=== PATIENT | female | born 1955 | race African-American/Black ===

== ENCOUNTER 2021-08-09 16:16 | Emergency (ER) | payer MEDICARE, OTHER ==
[~2021-08-09] VITALS: Ht 172.7 cm; Wt 79.0 kg
[2021-08-09 17:30] LABS: BASOPHILS % 0.5 % (0.0-2.0); EOSINOPHILS % 0.2 % (0.0-5.0); HEMATOCRIT. 39.9 % (36.0-48.0); HEMOGLOBIN. 12.7 g/dL (12.0-16.0); LYMPHOCYTES % 8.9 % (20.0-50.0); MEAN CORPUSCULAR HEMOGLOBIN 28.5 pg (28.0-32.0); MEAN CORPUSCULAR VOLUME 89.1 fL (81.0-99.0); MEAN PLATELET VOLUME 7.3 fl (7.4-10.4); MONOCYTES % 4.1 % (2.0-8.0); NEUTROPHILS % 86.3 % (40.0-76.0); PLATELET 171 x1000/uL (130-400); RED BLOOD CELL COUNT 4.47 mill/uL (4.2-5.4); RED CELL DISTRIBUTION WIDTH 16.7 % (11.6-14.6)
[2021-08-09 17:38] LABS: CHLORIDE 97 mEq/L (98-107)
[2021-08-09] MEDS ORDERED: FUROSEMIDE 100MG/10ML VIAL IVP NR (19:30)
[2021-08-09] MEDS ORDERED: MORPHINE SULFATE 4 MG/ML CPJ (NOT FOR IM USE) IV SCH (21:15)
[2021-08-09] MEDS ORDERED: ASPIRIN 325MG EC TABLET PO SCH (21:15)
[2021-08-09] MEDS ORDERED: MORPHINE SULFATE 2 MG/ML CPJ (NOT FOR IM USE) IV NR (21:30)
[2021-08-10 03:30] VITALS: BP 112/85
== END 2021-08-10 03:30 | disposition short-term general hospital (02) ==
LOC: ER 16:16 → CANRESERV 08-10 03:02 → ENRESERV 08-10 03:02 → ER 08-10 03:30 → CANBEDREQ 08-10 04:10
DX: I11.0 Hypertensive heart disease with heart failure (principal); I50.23 Acute on chronic systolic (congestive) heart failure; R73.9 Hyperglycemia, unspecified; Z20.822 Contact with and (suspected) exposure to COVID-19; I44.7 Left bundle-branch block, unspecified; D72.829 Elevated white blood cell count, unspecified; R74.8 Abnormal levels of other serum enzymes; E78.00 Pure hypercholesterolemia, unspecified
CPT/HCPCS: 36415; 71045; 80053; 83880; 84484; 85025; 87426; 93005; 96374; 96375; 99291; J1940; J2270